=== PATIENT | male | born 1960 | race Caucasian/White ===

== ENCOUNTER → 2017-10-23 | Outpatient (REF) | payer OTHER ==
[2017-10-23 10:53] LABS: HEMATOCRIT 46.6 % (42.0-52.0)
[2017-10-23 11:19] LABS: CHOLESTEROL LEVEL 183 MG/DL (<200); CHOLESTEROL RISK RATIO 3.452 (<5); HDL CHOLESTEROL 53 MG/DL (>40); IRON (FE) 101 UG/DL (65-175); LDL CHOLESTEROL 105.2 MG/DL (<100); MAGNESIUM LEVEL 2.1 MG/DL (1.8-2.4); NON-HDL-C 130 MG/DL; PERCENT SATURATION 33.1 % (19.7-50.0); PHOSPHORUS LEVEL 2.7 MG/DL (2.5-4.9); TOTAL IRON BINDING CAPACITY 305 UG/DL (250-450); TRIGLYCERIDES LEVEL 124 MG/DL (<150)
[2017-10-23 16:38] LABS: TOTAL 25(OH) VITAMIN D 29.4 NG/ML (30.0-100.0); VITAMIN B12 LEVEL 491 PG/ML (247-911)
[2017-10-24 08:16] LABS: PRETREATED FOLATE FOR RBCFOL 15.2 NG/ML
== END ==
LOC: M LABDRAW1 10:15
DX: Z98.84 Bariatric surgery status (principal); R53.83 Other fatigue

== ENCOUNTER → 2018-06-26 | Outpatient (REF) | payer OTHER ==
[2018-06-26 12:11] LABS: BASO # 0.1 10^3/uL (0.0-0.2); BASO % 0.9 % (0.0-1.0); EOS # 0.3 10^3/uL (0.0-0.50); HEMATOCRIT 41.8 % (42.0-52.0); HEMOGLOBIN 13.5 g/dl (13.5-17.5); LYMPH # 2.6 10^3/uL (1.5-4.5); LYMPH % 45.8 % (24.0-44.0); MEAN CORPUSCULAR HEMOGLOBIN 29.3 pg (27.0-33.0); MEAN CORPUSCULAR HGB CONC 32.3 g/dl (32.0-36.5); MEAN CORPUSCULAR VOLUME 90.9 fl (80.0-96.0); MONO # 0.4 10^3/uL (0.0-0.8); MONO % 7.5 % (0.0-5.0); NEUTROPHILS # 2.3 10^3/uL (1.8-7.7); NEUTROPHILS % 40.4 % (36.0-66.0); PLATELET COUNT, AUTOMATED 327 10^3/uL (150-450); WHITE BLOOD COUNT 5.6 10^3/uL (4.0-10.0)
[2018-06-26 12:24] LABS: ALBUMIN 3.5 GM/DL (3.2-5.2); ALT/SGPT 17 U/L (12-78); BILIRUBIN,TOTAL 0.7 MG/DL (0.2-1.0); BLOOD UREA NITROGEN 17 MG/DL (7-18); CALCIUM LEVEL 8.9 MG/DL (8.8-10.2); CARBON DIOXIDE LEVEL 28 MEQ/L (21-32); CHLORIDE LEVEL 109 MEQ/L (98-107); CHOLESTEROL LEVEL 187 MG/DL (<200); CHOLESTEROL RISK RATIO 4.452 (<5); FERRITIN 27 NG/ML (26-388); GLOMERULAR FILTRATION RATE > 60.0 (>49); GLUCOSE, FASTING 97 MG/DL (70-100); HDL CHOLESTEROL 42 MG/DL (>40); IRON (FE) 80 UG/DL (65-175); LDL CHOLESTEROL 126 MG/DL (<100); NON-HDL-C 145 MG/DL; PERCENT SATURATION 28.2 % (19.7-50.0); SODIUM LEVEL 142 MEQ/L (136-145); TOTAL IRON BINDING CAPACITY 284 UG/DL (250-450); TOTAL PROTEIN 6.9 GM/DL (6.4-8.2); TRIGLYCERIDES LEVEL 97 MG/DL (<150)
[2018-06-26 12:29] LABS: VITAMIN B12 LEVEL 745 PG/ML (247-911)
== END ==
LOC: M LABDRAW1 08:49
PROVIDERS: ATTEND Physician Assistant
DX: I10 Essential (primary) hypertension (principal); Z98.84 Bariatric surgery status

== ENCOUNTER → 2018-10-21 | Outpatient (CLI) | payer BC, OTHER ==
[~2018-10-21] MED LIST: E-Z-GAS II EFFERVESCENT PACKET (SODIUM BICARB./CITRIC ACID/SIMETHICONE) As Ordered ONE; E-Z-HD 98% w/w 340GM SUSP BTL As Ordered ONE; E-Z-PAQUE 96% w/w SUSP 176GM BTL As Ordered ONE
--- NOTE | 2018-10-21 17:05 | REP ---
Examination Requested: Upper G.I. Series With KUB Reason For Exam: Dysphasia Upper GI Air Contrast The procedure was performed by DELMIS Khalil, under the direct supervision of Dr. Cheek. The images were reviewed with Dr. Cheek. The mileage clerk film shows no organomegaly or pathological masses. The intestinal gas pattern appears normal. There are surgical lamine in the right upper quadrant consistent with the patient's history of a cholecystectomy. There is surgical hardware in the right hip consistent with the patient's history of right hip replacement. Liquid barium was given in the erect position as well as liquid barium in the prone oblique position in order to perform a double contrast upper GI examination. The oral and pharyngeal stages of deglutition were unremarkable. Esophageal transport is efficient and there is no esophagitis, stricture, or mucosal ring noted. There is no] hiatal hernia. Gastroesophageal reflux was not observed throughout the course of the exam. The stomach demonstrates postsurgical changes consistent with the patient's history of gastric bypass. There is free flow of contrast through the anastomosis. There is no evidence of stricture or obstruction. There is no evidence of gastritis, neoplasm, or ulcer disease. The visualized portion of the proximal small bowel appears normal in course and caliber. Impression: 1. Unremarkable upper GI examination status post gastric bypass. 0.6 minutes of fluoroscopy time was utilized for this procedure. Some fluoroscopic images are performed with last image hold technology. These images require no additional radiation. Reviewed by DELMIS Dos Santos 10/21/2018 01:14 P Electronically Signed by Phu Cheek DO 10/21/2018 04:52 P
== END ==
LOC: M RAD 07:54
PROVIDERS: ATTEND Physician Assistant
DX: R13.19 Other dysphagia (principal)

== ENCOUNTER 2019-04-03 07:07 | Day surgery (SDC) | payer BC, OTHER ==
[~2019-04-03] VITALS: Ht 175.3 cm; Wt 99.8 kg
[~2019-04-03 07:07] MED LIST changes: +AMLO10TA5 PO; +BSS IRR 500ML/OMIDRIA 4ML IRR BAG (OR ONLY) (J1097 PER ML) As Ordered ONE; +CEFUROXIME 1MG/0.1ML INTRACAMERAL INJ As Ordered ONE; +CIAL5TAB PO; +DUOVISC (0.50ML VISCOAT/0.55ML PROVISC) OPHTH KIT As Ordered ONE; -E-Z-GAS II EFFERVESCENT PACKET (SODIUM BICARB./CITRIC ACID/SIMETHICONE) As Ordered ONE; -E-Z-HD 98% w/w 340GM SUSP BTL As Ordered ONE; -E-Z-PAQUE 96% w/w SUSP 176GM BTL As Ordered ONE; +ESCI10TA2 PO; +FISH1000 PO; +MULTCAP PO; +OFLOXACIN 0.3 % (OCUFLOX) OPTH SOL 5ML OS ONE; +PHENYLEPHRINE 2.5% OPHTH SOL 2ML OS ONE; +POVIDONE-IODINE 5% OPHTH PREP SOL 30ML As Ordered ONE; +PROPARACAINE 0.5% OPHTH SOL 15ML OS ONE; +TROPICAMIDE 1% OPHTH SOLN 2ML OS ONE
[2019-04-03] MEDS ORDERED: fentaNYL 100 MCG/2 ML INJECTION (J3010) As Ordered ONE (07:14)
[2019-04-03] MEDS ORDERED: MIDAZOLAM INJ 2 MG/2 ML VIAL (J2250) As Ordered ONE (07:14)
[2019-04-03] MEDS ORDERED: LISI-538 PO (08:24)
[2019-04-03] MEDS ORDERED: TADA5TAB PO (08:25)
[2019-04-03 10:32] VITALS: BP 149/86
--- NOTE | 2019-04-04 16:47 | RO ---
DATE OF PROCEDURE: 04/03/2019 PREOPERATIVE DIAGNOSIS: 1. Visually significant nuclear sclerotic cataract left eye. POSTOPERATIVE DIAGNOSIS: 1. Visually significant nuclear sclerotic cataract left eye. PROCEDURE: 1. Cataract extraction with use of phacoemulsification and placement of intraocular lens, AU00T0, 15.5 D, left eye. SURGEON: Cody Mcdonald DO ARTIFICIAL INSEMINATOR: None. ANESTHESIA: Local with monitored anesthesia care (MAC), with Omidria (4 mL/500 mL) mixed into irrigation solution. COMPLICATIONS: None. POSTOPERATIVE CONDITION: Stable. INDICATIONS FOR SURGERY: 1. Blurred vision affecting patients activities of daily living. DESCRIPTION OF PROCEDURE: The patient was seen in the preoperative area and properly identified. The correct operative eye was identified and marked. The patient received topical anesthetic, antibiotics, and topical dilating drops. The patient was then transferred to the operating room. The correct side was re-identified, and a time-out was performed. The eye was prepped and draped in a sterile fashion. The eyelids were isolated with Tegaderm tape, and the lids were held open with an adjustable speculum. A 1.0 mm paracentesis incision was made. Intraocular preservative-free Shugarcaine was then injected into the anterior chamber. Viscoelastic was then injected into the anterior chamber through the paracentesis. Using a 2.4 mm sharp-tipped keratome, the anterior chamber was entered via a temporal clear cornea incision. A continuous curvilinear capsulorrhexis was created with Utrata forceps. Hydrodissection was performed with balanced salt solution (BSS) on a blunt cannula until the nucleus was able to rotate freely. The crystalline lens was phacoemulsified and aspirated. Irrigation/aspiration was used to remove the cortical material. Cohesive viscoelastic was placed into the capsular bag to deepen it. The implant was placed into the capsular bag and allowed to unfold. Placement was confirmed by visualizing the anterior capsulorrhexis. Irrigation/aspiration was used to remove the viscoelastic. The clear corneal incision was hydrated with BSS on a blunt cannula. The lens was well positioned. The incisions were then tested for leaks and found to be negative. Cefuroxime was injected into the anterior chamber. The eye was then palpated for appropriate pressure and adjusted accordingly with BSS. The eyelid speculum was then carefully removed. A shield was placed over the eye. The patient tolerated the procedure well and was discharged to the recovery unit in a stable condition.
== END 2019-04-03 10:36 | disposition home or self-care (01) ==
LOC: M SDC 07:07
PROVIDERS: ATTEND Ophthalmology
DX: H25.12 Age-related nuclear cataract, left eye (principal); I10 Essential (primary) hypertension; R21 Rash and other nonspecific skin eruption; M54.9 Dorsalgia, unspecified; F32.9 Major depressive disorder, single episode, unspecified; G47.30 Sleep apnea, unspecified; N40.0 Benign prostatic hyperplasia without lower urinary tract symptoms; N39.9 Disorder of urinary system, unspecified; Z96.641 Presence of right artificial hip joint; Z79.899 Other long term (current) drug therapy
CPT/HCPCS: 66984; J1097; J2250; J3010

== ENCOUNTER → 2019-08-04 | Outpatient (CLI) | payer BC, OTHER ==
[~2019-08-04] MED LIST changes: -BSS IRR 500ML/OMIDRIA 4ML IRR BAG (OR ONLY) (J1097 PER ML) As Ordered ONE; -CEFUROXIME 1MG/0.1ML INTRACAMERAL INJ As Ordered ONE; +CELE1CAP7 PO; -DUOVISC (0.50ML VISCOAT/0.55ML PROVISC) OPHTH KIT As Ordered ONE; +LISI-538 PO; +NIZO2SHA EXT; -OFLOXACIN 0.3 % (OCUFLOX) OPTH SOL 5ML OS ONE; -PHENYLEPHRINE 2.5% OPHTH SOL 2ML OS ONE; -POVIDONE-IODINE 5% OPHTH PREP SOL 30ML As Ordered ONE; -PROPARACAINE 0.5% OPHTH SOL 15ML OS ONE; +TADA5TAB PO; -TROPICAMIDE 1% OPHTH SOLN 2ML OS ONE
== END ==
LOC: M LABSMTC 11:41
PROVIDERS: ATTEND Anesthesiology
DX: Z01.818 Encounter for other preprocedural examination (principal); Z11.59 Encounter for screening for other viral diseases

== ENCOUNTER → 2019-08-05 | Outpatient (CLI) | payer BC, OTHER ==
[2019-08-05 12:01] LABS: BASO # 0.1 10^3/uL (0.0-0.2); BASO % 0.9 % (0.0-1.0); EOS # 0.3 10^3/uL (0.0-0.5); EOS % 4.8 % (0.0-3.0); HEMATOCRIT 42.7 % (42.0-52.0); HEMOGLOBIN 13.5 g/dl (13.5-17.5); LYMPH # 1.9 10^3/uL (1.5-5.0); LYMPH % 34.4 % (24.0-44.0); MEAN CORPUSCULAR HEMOGLOBIN 28.1 pg (27.0-33.0); MEAN CORPUSCULAR HGB CONC 31.6 g/dl (32.0-36.5); MEAN CORPUSCULAR VOLUME 88.8 fl (80.0-96.0); MONO # 0.5 10^3/uL (0.0-0.8); NEUTROPHILS # 2.7 10^3/uL (1.5-8.5); NEUTROPHILS % 49.5 % (36.0-66.0); PLATELET COUNT, AUTOMATED 311 10^3/uL (150-450); RED BLOOD COUNT 4.81 10^6/uL (4.30-6.10); WHITE BLOOD COUNT 5.4 10^3/uL (4.0-10.0)
[2019-08-05 12:14] LABS: ALBUMIN 3.4 GM/DL (3.2-5.2); ALT/SGPT 20 U/L (12-78); BLOOD UREA NITROGEN 13 MG/DL (7-18); CALCIUM LEVEL 8.9 MG/DL (8.8-10.2); CARBON DIOXIDE LEVEL 28 MEQ/L (21-32); CHLORIDE LEVEL 108 MEQ/L (98-107); CHOLESTEROL LEVEL 191 MG/DL (<200); CHOLESTEROL RISK RATIO 4.063 (<5); CREATININE FOR GFR 0.78 MG/DL (0.70-1.30); GLOMERULAR FILTRATION RATE > 60.0 (>49); GLUCOSE, FASTING 93 MG/DL (70-100); HDL CHOLESTEROL 47 MG/DL (>40); LDL CHOLESTEROL 125 MG/DL (<100); NON-HDL-C 144 MG/DL; POTASSIUM SERUM 3.8 MEQ/L (3.5-5.1); SODIUM LEVEL 141 MEQ/L (136-145); TOTAL PROTEIN 7.5 GM/DL (6.4-8.2); TRIGLYCERIDES LEVEL 96 MG/DL (<150)
== END ==
LOC: M PLALAB 08:59
PROVIDERS: ATTEND Family Medicine
DX: Z00.00 Encounter for general adult medical examination without abnormal findings (principal)

== ENCOUNTER 2019-08-07 09:58 | Day surgery (SDC) | payer BC, OTHER ==
[~2019-08-07] VITALS: Ht 175.3 cm; Wt 101.7 kg
[~2019-08-07 09:58] MED LIST changes: -NIZO2SHA EXT
[2019-08-07] MEDS: NS 1,000 ML IV SCH (10:25)
[2019-08-07] MEDS ORDERED: NIZO2SHA EXT (10:37)
[2019-08-07] MEDS ORDERED: LIDOCAINE 2% 100MG/5ML SDV (FOR ANES.) As Ordered ONE (10:50)
[2019-08-07] MEDS ORDERED: propofoL 500 MG/50 ML VIAL As Ordered ONE (10:50)
--- NOTE | 2019-08-07 11:02 | ROOR ---
Patient Name: Kang Ayers Procedure Date: 08/07/2019 10:47 AM Date of : 1960 Age: 59 Room: [facility] Gender: Male Note Status: Finalized Procedure: Colonoscopy Indications: Screening for colorectal malignant neoplasm Providers: Rd Atkins Jr, MD Referring MD: Itzel Srivastava MD Requesting Provider: Medicines: Propofol per Anesthesia Complications: No immediate complications. Procedure: Pre-Anesthesia Assessment: - Prior to the procedure, a History and Physical was performed, and patient medications and allergies were reviewed. The patient is competent. The risks and benefits of the procedure and the sedation options and risks were discussed with the patient. All questions were answered and informed consent was obtained. Patient identification and proposed procedure were verified by the physician and the nurse in the pre-procedure area and in the procedure room. Mental Status Examination: alert and oriented. Airway Examination: normal oropharyngeal airway and neck mobility. Respiratory Examination: clear to auscultation. CV Examination: normal. ASA Grade Assessment: II - A patient with mild systemic disease. After reviewing the risks and benefits, the patient was deemed in satisfactory condition to undergo the procedure. The anesthesia plan was to use moderate sedation / analgesia (conscious sedation). Immediately prior to administration of medications, the patient was re-assessed for adequacy to receive sedatives. The heart rate, respiratory rate, oxygen saturations, blood pressure, adequacy of pulmonary ventilation, and response to care were monitored throughout the procedure. The physical status of the patient was re-assessed after the procedure. The Colonoscope was introduced through the anus and advanced to the cecum, identified by appendiceal orifice and ileocecal valve. The colonoscopy was performed without difficulty. The patient tolerated the procedure well. The quality of the bowel preparation was adequate. Findings: The rectum, recto-sigmoid colon, sigmoid colon, descending colon, transverse colon, ascending colon, cecum and ileocecal valve appeared normal. Non-bleeding internal hemorrhoids were found during endoscopy. The hemorrhoids were Grade II (internal hemorrhoids that prolapse but reduce spontaneously) and Grade III (internal hemorrhoids that prolapse but require manual reduction). Impression: - The rectum, recto-sigmoid colon, sigmoid colon, descending colon, transverse colon, ascending colon, cecum and ileocecal valve are normal. - Non-bleeding internal hemorrhoids. - No specimens collected. Recommendation: - Repeat colonoscopy in 10 years for screening purposes. Rd Atkins MD Rd Atkins Jr, MD 08/07/2019 11:02:17 AM Electronically signed by Rd Atkins Jr, MD Number of Addenda: 0 Note Initiated On: 08/07/2019 10:47 AM Estimated Blood Loss: Estimated blood loss: none.
[2019-08-07 11:25] VITALS: BP 114/62
== END 2019-08-07 11:54 | disposition home or self-care (01) ==
LOC: M OPP 09:58
PROVIDERS: ATTEND Surgery
DX: Z12.11 Encounter for screening for malignant neoplasm of colon (principal); K64.2 Third degree hemorrhoids; I10 Essential (primary) hypertension; Z79.899 Other long term (current) drug therapy; Z98.84 Bariatric surgery status

== ENCOUNTER 2019-08-24 11:44 | Emergency (ER) | payer BC, OTHER ==
[~2019-08-24] VITALS: Ht 175.3 cm; Wt 104.8 kg
[~2019-08-24 11:44] MED LIST changes: -AMLO10TA5 PO; +AMLO1TAB25 PO; +NIZO2SHA EXT
[2019-08-24 12:32] LABS: BASO # 0.1 10^3/uL (0.0-0.2); BASO % 0.9 % (0.0-1.0); EOS # 0.3 10^3/uL (0.0-0.5); EOS % 4.7 % (0.0-3.0); HEMATOCRIT 43.1 % (42.0-52.0); HEMOGLOBIN 13.7 g/dl (13.5-17.5); LYMPH # 2.1 10^3/uL (1.5-5.0); LYMPH % 38.4 % (24.0-44.0); MEAN CORPUSCULAR HGB CONC 31.8 g/dl (32.0-36.5); MEAN CORPUSCULAR VOLUME 88.1 fl (80.0-96.0); MONO # 0.6 10^3/uL (0.0-0.8); MONO % 10.1 % (0.0-5.0); NEUTROPHILS # 2.5 10^3/uL (1.5-8.5); NEUTROPHILS % 45.7 % (36.0-66.0); PLATELET COUNT, AUTOMATED 281 10^3/uL (150-450); RED BLOOD COUNT 4.89 10^6/uL (4.30-6.10); WHITE BLOOD COUNT 5.5 10^3/uL (4.0-10.0)
[2019-08-24 12:43] LABS: INR 1.07; PROTHROMBIN TIME 13.6 SECONDS (11.8-14.0)
[2019-08-24 12:44] LABS: PARTIAL THROMBOPLASTIN TIME 30.1 SECONDS (25.0-38.4)
[2019-08-24 13:00] LABS: CK-MB VALUE MASS 1.1 NG/ML (<3.6); CPK CREATINE PHOSPHOKINASE 57 U/L (39-308); MB/CK RELATIVE INDEX 1.93 (< OR =4); TROPONIN I < 0.02 NG/ML (< 0.10)
--- NOTE | 2019-08-24 13:15 | REP ---
CT brain: 08/24/2019. Indication: Stroke. Technique: Unenhanced axial CT images of the brain were obtained with coronal reconstructions provided. Comparison: None. Findings: There is no acute intracranial hemorrhage, acute cortical infarction, mass effect or hydrocephalous. There is no significant fluid within the visualized paranasal sinuses/mastoid air cells. Impression: No acute intracranial process. Electronically Signed by Rogers Burns DO 08/24/2019 01:06 P
--- NOTE | 2019-08-24 13:27 | REP ---
Single view chest: 08/24/2019. Indication: Stroke. Comparison: 11/24/2011. Findings: The lungs are clear. There is no pleural effusion or pneumothorax. Minimal discoid atelectasis is noted within the lung bases. The cardiac silhouette is not enlarged. Impression: Clear lungs. Electronically Signed by Rogers Burns DO 08/24/2019 01:17 P
[2019-08-24] MEDS ORDERED: LORazepam 2 MG/ML VIAL IV STA (15:26)
--- NOTE | 2019-08-24 16:12 | ECGEPIP ---
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
[2019-08-24 17:00] VITALS: BP 155/77
--- NOTE | 2019-08-24 17:02 | REP ---
MRI brain and intracranial MRA: 08/24/2019. Indication: Diplopia. Headache. Technique: Multiplanar short and long TR sequences of the brain were performed without IV Gadolinium. 3-D [id number] imaging of the intracranial circulation was performed. Comparison: No previous MRI studies are available for direct comparison. Findings: There are no areas of restricted diffusion. There is no intracranial mass effect, hydrocephalus or significant hemorrhage. There are a few small foci of elevated T2 signal within the cerebral hemisphere white matter bilaterally. Bilateral ocular lens replacements are noted. There are no acute abnormalities of the ocular or intraorbital anatomy. There is no intracranial aneurysm, AVM, significant stenosis or vessel occlusion. Impression: No acute intracranial process. 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 Unremarkable intracranial vessels. No aneurysm. Electronically Signed by Rogers Burns DO 08/24/2019 04:54 P
--- NOTE | 2019-08-24 17:03 | REP ---
MRI brain and intracranial MRA: 08/24/2019. Indication: Diplopia. Headache. Technique: Multiplanar short and long TR sequences of the brain were performed without IV Gadolinium. 3-D [id number] imaging of the intracranial circulation was performed. Comparison: No previous MRI studies are available for direct comparison. Findings: There are no areas of restricted diffusion. There is no intracranial mass effect, hydrocephalus or significant hemorrhage. There are a few small foci of elevated T2 signal within the cerebral hemisphere white matter bilaterally. Bilateral ocular lens replacements are noted. There are no acute abnormalities of the ocular or intraorbital anatomy. There is no intracranial aneurysm, AVM, significant stenosis or vessel occlusion. Impression: No acute intracranial process. Electronically Signed by Rogers Burns DO 08/24/2019 04:54 P
== END 2019-08-24 17:24 | disposition home or self-care (01) ==
LOC: M ED 11:44
DX: H53.2 Diplopia (principal); I10 Essential (primary) hypertension; F33.9 Major depressive disorder, recurrent, unspecified; F41.9 Anxiety disorder, unspecified; G47.30 Sleep apnea, unspecified; Z79.899 Other long term (current) drug therapy
CPT/HCPCS: 70450; 70544; 70551; 71045; 80047; 82550; 82553; 84484; 85025; 85610; 85730; 86850; 86900; 86901; 93005; 93041; 94760; 96374; 99284; J2060

== ENCOUNTER → 2019-09-08 | Outpatient (CLI) | payer BC, OTHER ==
[~2019-09-08] MED LIST changes: +AMLO10TA5 PO; -AMLO1TAB25 PO
== END ==
LOC: M PLALAB 12:20
PROVIDERS: ATTEND Physician Assistant
DX: N40.1 Benign prostatic hyperplasia with lower urinary tract symptoms (principal)

== ENCOUNTER → 2019-10-30 | Outpatient (CLI) | payer BC, OTHER ==
[~2019-10-30] MED LIST changes: -AMLO10TA5 PO; +AMLO1TAB25 PO
[2019-10-30 19:39] LABS: ALBUMIN 3.8 GM/DL (3.2-5.2); ALT/SGPT 23 U/L (12-78); BILIRUBIN,TOTAL 0.7 MG/DL (0.2-1.0); BLOOD UREA NITROGEN 10 MG/DL (7-18); CALCIUM LEVEL 8.8 MG/DL (8.8-10.2); CARBON DIOXIDE LEVEL 31 MEQ/L (21-32); CHLORIDE LEVEL 108 MEQ/L (98-107); GLOMERULAR FILTRATION RATE > 60.0 (>49); GLUCOSE, FASTING 67 MG/DL (70-100); POTASSIUM SERUM 4.4 MEQ/L (3.5-5.1); SODIUM LEVEL 141 MEQ/L (136-145); TOTAL PROTEIN 7.6 GM/DL (6.4-8.2)
== END ==
LOC: M PLALAB 15:21
PROVIDERS: ATTEND Nurse Practitioner Family
DX: I10 Essential (primary) hypertension (principal)

== ENCOUNTER → 2019-11-12 | Outpatient (CLI) | payer BC, OTHER ==
--- NOTE | 2019-11-15 08:51 | SLEEPCENT ---
DATE: 11/12/2019 ORDERED BY: Dr. Leonora Gregorio Nocturnal polysomnography was performed for the titration of pressure therapy in this patient with obstructive sleep apnea syndrome. For testing, a [facility] [employer] Mirage full-face mask of medium size was used. There was 4 cm of water pressure applied to the circuit, and the lights were extinguished. There was 7 hours and 30 minutes of data reviewed. There was 250.5 minutes of sleep identified. Sleep latency was prolonged at 142 minutes. REM latency was normal at 61 minutes. Sleep architecture once established improved over the course of the study with optimal pressure therapy. There were three REM cycles noted. Overall sleep efficiency was 56.2%. The electrocardiogram showed a sinus rhythm with a average heart rate of 58 beats per minute. EEG showed normal waveforms for wake and sleep. Respiratory events were fully palliated with CPAP at a pressure of +8. Some limb activity was noted, but limb movement arousal index was 3.4. IMPRESSION: Obstructive sleep apnea syndrome (G47.33). RECOMMENDATION: Nightly use of pressure therapy, 8 cm of water. MTDD
== END ==
LOC: M SLEEP 20:00
PROVIDERS: ATTEND Nurse Practitioner Family
DX: G47.33 Obstructive sleep apnea (adult) (pediatric) (principal)

== ENCOUNTER → 2020-01-02 | Outpatient (CLI) | payer SELFPAY | LOC: M LABSMTC 12:57 | PROVIDERS: ATTEND Pediatrics | DX: Z20.828 Contact with and (suspected) exposure to other viral communicable diseases (principal) ==

== ENCOUNTER → 2020-04-09 | Outpatient (CLI) | payer OTHER ==
[~2020-04-09] MED LIST changes: +ESCI10TA16 PO; -ESCI10TA2 PO; -LISI-538 PO; +LISI20TA33 PO
[2020-04-11 06:39] LABS: PSA TOTAL 3.3 ng/mL (0.0-4.0)
== END ==
LOC: M PLALAB 11:23
PROVIDERS: ATTEND Urology
DX: R97.20 Elevated prostate specific antigen [PSA] (principal); C61 Malignant neoplasm of prostate

== ENCOUNTER → 2020-04-27 | Outpatient (CLI) | payer OTHER ==
[2020-04-27 18:12] LABS: BLOOD UREA NITROGEN 11 MG/DL (7-18); CALCIUM LEVEL 9.3 MG/DL (8.8-10.2); CARBON DIOXIDE LEVEL 30 MEQ/L (21-32); CHLORIDE LEVEL 106 MEQ/L (98-107); CREATININE FOR GFR 0.88 MG/DL (0.70-1.30); GLOMERULAR FILTRATION RATE > 60.0 (>49); GLUCOSE, FASTING 88 MG/DL (70-100); POTASSIUM SERUM 3.8 MEQ/L (3.5-5.1); SODIUM LEVEL 143 MEQ/L (136-145)
== END ==
LOC: M PLALAB 14:52
PROVIDERS: ATTEND Family Medicine
DX: I10 Essential (primary) hypertension (principal)

== ENCOUNTER → 2020-06-11 | Outpatient (CLI) | payer SELFPAY | LOC: M LABSMTC 10:24 | PROVIDERS: ATTEND Pediatrics | DX: Z11.52 Encounter for screening for COVID-19 (principal) ==

== ENCOUNTER → 2020-06-11 | Outpatient (CLI) | payer BC, OTHER ==
--- NOTE | 2020-06-11 17:19 | ECGEPIP ---
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
== END ==
LOC: M EKG 09:40
PROVIDERS: ATTEND Family Medicine
DX: Z01.818 Encounter for other preprocedural examination (principal); R00.1 Bradycardia, unspecified

== ENCOUNTER → 2020-06-18 | Outpatient (CLI) | payer BC, OTHER ==
[2020-06-18 16:53] LABS: BASO % 0.6 % (0.0-1.0); EOS # 0.2 10^3/uL (0.0-0.5); EOS % 3.9 % (0.0-3.0); LYMPH # 1.4 10^3/uL (1.5-5.0); LYMPH % 26.6 % (24.0-44.0); MEAN CORPUSCULAR HEMOGLOBIN 28.1 pg (27.0-33.0); MEAN CORPUSCULAR HGB CONC 31.1 g/dl (32.0-36.5); MEAN CORPUSCULAR VOLUME 90.4 fl (80.0-96.0); MONO # 0.5 10^3/uL (0.0-0.8); MONO % 9.8 % (2.0-8.0); NEUTROPHILS % 58.9 % (36.0-66.0); PLATELET COUNT, AUTOMATED 288 10^3/uL (150-450); RED BLOOD COUNT 4.98 10^6/uL (4.30-6.10); WHITE BLOOD COUNT 5.1 10^3/uL (4.0-10.0)
[2020-06-18 17:07] LABS: ALBUMIN 3.7 GM/DL (3.2-5.2); ALT/SGPT 18 U/L (12-78); BILIRUBIN,TOTAL 0.7 MG/DL (0.2-1.0); BLOOD UREA NITROGEN 12 MG/DL (7-18); CARBON DIOXIDE LEVEL 29 MEQ/L (21-32); CHLORIDE LEVEL 111 MEQ/L (98-107); CREATININE FOR GFR 1.03 MG/DL (0.70-1.30); GLOMERULAR FILTRATION RATE > 60.0 (>49); GLUCOSE, FASTING 162 MG/DL (70-100); POTASSIUM SERUM 3.8 MEQ/L (3.5-5.1); SODIUM LEVEL 144 MEQ/L (136-145); TOTAL PROTEIN 7.4 GM/DL (6.4-8.2)
[2020-06-18 17:11] LABS: INR 0.98; PROTHROMBIN TIME 13.2 SECONDS (12.5-14.3)
[2020-06-18 17:12] LABS: PARTIAL THROMBOPLASTIN TIME 31.9 SECONDS (24.2-38.5)
== END ==
LOC: M PLALAB 14:35
PROVIDERS: ATTEND Radiology Therapeutic Radiology
DX: C61 Malignant neoplasm of prostate (principal)

== ENCOUNTER → 2020-07-22 | Outpatient (CLI) | payer BC, OTHER ==
[2020-07-22 11:53] LABS: HEMATOCRIT 43.9 % (42.0-52.0); HEMOGLOBIN 13.6 g/dl (13.5-17.5); MEAN CORPUSCULAR HEMOGLOBIN 27.9 pg (27.0-33.0); PLATELET COUNT, AUTOMATED 322 10^3/uL (150-450); RED BLOOD COUNT 4.88 10^6/uL (4.30-6.10); WHITE BLOOD COUNT 5.1 10^3/uL (4.0-10.0)
[2020-07-22 12:35] LABS: ALBUMIN 3.5 GM/DL (3.2-5.2); BILIRUBIN,DIRECT 0.2 MG/DL (0.0-0.2); BILIRUBIN,TOTAL 0.8 MG/DL (0.2-1.0); CHOLESTEROL RISK RATIO 4.68 (<5); MAGNESIUM LEVEL 2.5 MG/DL (1.8-2.4); THYROID STIMULATING HORMONE 2.92 uIU/ML (0.358-3.740); TOTAL 25(OH) VITAMIN D 23.2 NG/ML (30.0-100.0); TOTAL PROTEIN 7.3 GM/DL (6.4-8.2)
== END ==
LOC: M PLALAB 08:16
DX: Z98.84 Bariatric surgery status (principal); R63.5 Abnormal weight gain; K91.1 Postgastric surgery syndromes

== ENCOUNTER → 2020-08-16 | Outpatient (REF) | payer BC, OTHER ==
[2020-08-16 19:50] LABS: BLOOD UREA NITROGEN 9 MG/DL (7-18); CALCIUM LEVEL 9.5 MG/DL (8.8-10.2); CARBON DIOXIDE LEVEL 28 MEQ/L (21-32); CHLORIDE LEVEL 107 MEQ/L (98-107); CREATININE FOR GFR 0.84 MG/DL (0.70-1.30); GLOMERULAR FILTRATION RATE > 60.0 (>49); GLUCOSE, FASTING 79 MG/DL (70-100); POTASSIUM SERUM 3.9 MEQ/L (3.5-5.1); SODIUM LEVEL 142 MEQ/L (136-145)
== END ==
LOC: M LAB REF 18:01 → M PLALAB 18:01
PROVIDERS: ATTEND Family Medicine
DX: Z01.818 Encounter for other preprocedural examination (principal); I10 Essential (primary) hypertension; H43.392 Other vitreous opacities, left eye

== ENCOUNTER → 2020-10-07 | Outpatient (CLI) | payer BC, OTHER ==
[2020-10-07 17:59] LABS: BLOOD UREA NITROGEN 14 MG/DL (7-18); CALCIUM LEVEL 8.5 MG/DL (8.8-10.2); CARBON DIOXIDE LEVEL 31 MEQ/L (21-32); CHLORIDE LEVEL 107 MEQ/L (98-107); CREATININE FOR GFR 0.84 MG/DL (0.70-1.30); GLOMERULAR FILTRATION RATE > 60.0 (>49); GLUCOSE, FASTING 130 MG/DL (70-100); POTASSIUM SERUM 3.9 MEQ/L (3.5-5.1); SODIUM LEVEL 140 MEQ/L (136-145)
== END ==
LOC: M PLALAB 15:22
PROVIDERS: ATTEND Family Medicine
DX: Z01.818 Encounter for other preprocedural examination (principal); I10 Essential (primary) hypertension

== ENCOUNTER → 2020-10-21 | Outpatient (CLI) | payer BC, OTHER | LOC: M LABSMTC 09:51 | PROVIDERS: ATTEND Ophthalmology Retina Specialist | DX: Z01.818 Encounter for other preprocedural examination (principal) ==

== ENCOUNTER → 2021-07-07 | Outpatient (CLI) | payer BC, OTHER, MEDICARE | LOC: M LABSMTC 10:25 | PROVIDERS: ATTEND Pediatrics | DX: Z20.822 Contact with and (suspected) exposure to COVID-19 (principal) | CPT/HCPCS: 87426; C9803 ==

== ENCOUNTER → 2021-12-13 | Outpatient (REF) | payer MEDICARE, BC, OTHER | LOC: M LAB REF 17:26 | PROVIDERS: ATTEND Nurse Practitioner Family | DX: J02.9 Acute pharyngitis, unspecified (principal) ==

== ENCOUNTER → 2022-01-16 | Outpatient (CLI) | payer MEDICARE, BC, OTHER ==
[2022-01-16 12:20] LABS: INR 0.9; PROTHROMBIN TIME 12.3 SECONDS (12.5-14.5)
[2022-01-16 12:35] LABS: ALBUMIN 3.4 GM/DL (3.2-5.2); ALT/SGPT 18 U/L (12-78); BILIRUBIN,DIRECT 0.2 MG/DL (0.0-0.2); BILIRUBIN,TOTAL 0.6 MG/DL (0.2-1.0); IRON (FE) 53 UG/DL (65-175); PERCENT SATURATION 16.6 % (19.7-50.0); TOTAL IRON BINDING CAPACITY 320 UG/DL (250-450)
[2022-01-16 13:30] LABS: HEPATITIS B SURFACE ANTIGEN NEGATIVE (NEGATIVE)
[2022-01-16 13:52] LABS: HEPATITIS B CORE ANTIBODY IGM NEGATIVE (NEGATIVE)
[2022-01-18 16:09] LABS: ANCA-ATYPICAL <1:20 titer (Neg:<1:20); ANTI-MITOCHONDRIAL ANTIBODY <20.0 Units (0.0-20.0); ANTINUCLEAR ANTIBODIES DIRECT Negative (Negative); CYTOPLASMIC NEUTROP AB ANCA-C <1:20 titer (Neg:<1:20); LIVER-KIDNEY MICROSOMAL ABY <20.1 Units (0.0-20.0); PERINUCLEAR AB ANCA-P <1:20 titer (Neg:<1:20)
== END ==
LOC: M WUC 08:32
PROVIDERS: ATTEND Internal Medicine Gastroenterology
DX: R74.8 Abnormal levels of other serum enzymes (principal); R93.2 Abnormal findings on diagnostic imaging of liver and biliary tract

== ENCOUNTER → 2022-06-26 | Outpatient (REF) | payer MEDICARE, OTHER ==
[2022-06-26 12:58] LABS: BASO # 0.1 10^3/uL (0.0-0.2); BASO % 1.1 % (0.0-1.0); EOS # 0.2 10^3/uL (0.0-0.5); EOS % 3.3 % (0.0-3.0); HEMATOCRIT 45.1 % (42.0-52.0); HEMOGLOBIN 14.4 g/dl (13.5-17.5); LYMPH # 0.9 10^3/uL (1.5-5.0); LYMPH % 20.1 % (24.0-44.0); MEAN CORPUSCULAR HEMOGLOBIN 29.1 pg (27.0-33.0); MEAN CORPUSCULAR HGB CONC 31.9 g/dl (32.0-36.5); MEAN CORPUSCULAR VOLUME 91.1 fl (80.0-96.0); MONO # 0.4 10^3/uL (0.0-0.8); MONO % 9.2 % (2.0-8.0); NEUTROPHILS % 65.6 % (36.0-66.0); PLATELET COUNT, AUTOMATED 261 10^3/uL (150-450); RED BLOOD COUNT 4.95 10^6/uL (4.30-6.10); WHITE BLOOD COUNT 4.6 10^3/uL (4.0-10.0)
[2022-06-26 13:25] LABS: ALBUMIN 3.6 G/DL (3.2-5.2); ALKALINE PHOSPHATASE 108 U/L (46-116); ALT/SGPT 16 U/L (7.0-40); AST/SGOT 21 U/L (<34); BILIRUBIN,TOTAL 0.7 MG/DL (0.3-1.2); BLOOD UREA NITROGEN 13 MG/DL (9-23); CALCIUM LEVEL 8.5 MG/DL (8.3-10.6); CARBON DIOXIDE LEVEL 27 MMOL/L (20-31); CHLORIDE LEVEL 108 MMOL/L (98-107); CREATININE FOR GFR 0.72 MG/DL (0.70-1.30); GLOMERULAR FILTRATION RATE > 60.0 (>49); GLUCOSE, FASTING 94 MG/DL (74-106); POTASSIUM SERUM 4.2 MMOL/L (3.5-5.1); SODIUM LEVEL 141 MMOL/L (136-145); TOTAL PROTEIN 6.8 G/DL (5.7-8.2)
[2022-06-26 13:59] LABS: ERYTHROCYTE SEDIMENTATION RATE 42 mm/hr (0-20)
== END ==
LOC: M SFHCRHEU 08:53
PROVIDERS: ATTEND Internal Medicine Rheumatology
DX: M35.3 Polymyalgia rheumatica (principal); H04.123 Dry eye syndrome of bilateral lacrimal glands

== ENCOUNTER → 2022-06-28 | Outpatient (CLI) | payer MEDICARE, OTHER | LOC: M PLAIMG 10:41 | PROVIDERS: ATTEND Internal Medicine Rheumatology | DX: M35.3 Polymyalgia rheumatica (principal); H04.123 Dry eye syndrome of bilateral lacrimal glands; M47.812 Spondylosis without myelopathy or radiculopathy, cervical region; M19.071 Primary osteoarthritis, right ankle and foot; M19.072 Primary osteoarthritis, left ankle and foot; M19.041 Primary osteoarthritis, right hand; M19.042 Primary osteoarthritis, left hand; M47.817 Spondylosis without myelopathy or radiculopathy, lumbosacral region; M51.34 Other intervertebral disc degeneration, thoracic region ==

== ENCOUNTER → 2022-09-05 | Outpatient (REF) | payer MEDICARE, OTHER ==
[2022-09-05 13:46] LABS: BASO # 0.1 10^3/uL (0.0-0.2); EOS # 0.2 10^3/uL (0.0-0.5); HEMATOCRIT 47.3 % (42.0-52.0); HEMOGLOBIN 15.3 g/dl (13.5-17.5); LYMPH # 1.4 10^3/uL (1.5-5.0); LYMPH % 27.2 % (24.0-44.0); MEAN CORPUSCULAR HEMOGLOBIN 29.1 pg (27.0-33.0); MEAN CORPUSCULAR HGB CONC 32.3 g/dl (32.0-36.5); MEAN CORPUSCULAR VOLUME 89.9 fl (80.0-96.0); MONO # 0.6 10^3/uL (0.0-0.8); MONO % 10.7 % (2.0-8.0); NEUTROPHILS % 56.7 % (36.0-66.0); PLATELET COUNT, AUTOMATED 267 10^3/uL (150-450); RED BLOOD COUNT 5.26 10^6/uL (4.30-6.10); WHITE BLOOD COUNT 5.2 10^3/uL (4.0-10.0)
[2022-09-05 14:16] LABS: ALKALINE PHOSPHATASE 115 U/L (46-116); ALT/SGPT 16 U/L (7.0-40); AST/SGOT 13 U/L (<34); BILIRUBIN,TOTAL 1.2 MG/DL (0.3-1.2); BLOOD UREA NITROGEN 15 MG/DL (9-23); CALCIUM LEVEL 9.6 MG/DL (8.3-10.6); CARBON DIOXIDE LEVEL 27 MMOL/L (20-31); CHLORIDE LEVEL 104 MMOL/L (98-107); CREATININE FOR GFR 0.87 MG/DL (0.70-1.30); GLOMERULAR FILTRATION RATE > 60.0 (>49); GLUCOSE, FASTING 77 MG/DL (74-106); POTASSIUM SERUM 3.9 MMOL/L (3.5-5.1); SODIUM LEVEL 139 MMOL/L (136-145); TOTAL PROTEIN 7.3 G/DL (5.7-8.2)
[2022-09-05 15:01] LABS: ERYTHROCYTE SEDIMENTATION RATE 32 mm/hr (0-20)
== END ==
LOC: M SFHCRHEU 10:45
PROVIDERS: ATTEND Internal Medicine Rheumatology
DX: M35.3 Polymyalgia rheumatica (principal); H04.123 Dry eye syndrome of bilateral lacrimal glands; R79.82 Elevated C-reactive protein (CRP)

== ENCOUNTER → 2022-09-25 | Outpatient (CLI) | payer MEDICARE, BC, OTHER ==
[2022-09-25 15:50] LABS: BASO # 0.1 10^3/uL (0.0-0.2); BASO % 0.9 % (0.0-1.0); EOS # 0.2 10^3/uL (0.0-0.5); EOS % 2.6 % (0.0-3.0); HEMATOCRIT 43.6 % (42.0-52.0); HEMOGLOBIN 14.2 g/dl (13.5-17.5); LYMPH # 1.4 10^3/uL (1.5-5.0); LYMPH % 19.9 % (24.0-44.0); MEAN CORPUSCULAR HEMOGLOBIN 29.6 pg (27.0-33.0); MEAN CORPUSCULAR HGB CONC 32.6 g/dl (32.0-36.5); MONO # 0.6 10^3/uL (0.0-0.8); MONO % 8.9 % (2.0-8.0); NEUTROPHILS # 4.7 10^3/uL (1.5-8.5); NEUTROPHILS % 67.3 % (36.0-66.0); PLATELET COUNT, AUTOMATED 273 10^3/uL (150-450); RED BLOOD COUNT 4.79 10^6/uL (4.30-6.10)
[2022-09-25 16:09] LABS: ALBUMIN 3.5 G/DL (3.2-5.2); ALKALINE PHOSPHATASE 116 U/L (46-116); ALT/SGPT 17 U/L (7.0-40); AST/SGOT 14 U/L (<34); BILIRUBIN,TOTAL 0.8 MG/DL (0.3-1.2); BLOOD UREA NITROGEN 13 MG/DL (9-23); CALCIUM LEVEL 9.6 MG/DL (8.3-10.6); CARBON DIOXIDE LEVEL 28 MMOL/L (20-31); CHLORIDE LEVEL 106 MMOL/L (98-107); CREATININE FOR GFR 0.81 MG/DL (0.70-1.30); GLOMERULAR FILTRATION RATE > 60.0 (>49); GLUCOSE, FASTING 94 MG/DL (74-106); POTASSIUM SERUM 3.9 MMOL/L (3.5-5.1); SODIUM LEVEL 141 MMOL/L (136-145)
== END ==
LOC: M PLALAB 12:39
PROVIDERS: ATTEND Nurse Practitioner Family
DX: M79.661 Pain in right lower leg (principal)

== ENCOUNTER → 2022-09-25 | Outpatient (CLI) | payer MEDICARE, OTHER | LOC: M RAD 11:27 | PROVIDERS: ATTEND Nurse Practitioner Family | DX: M79.661 Pain in right lower leg (principal) ==

== ENCOUNTER → 2022-11-17 | Outpatient (CLI) | payer MEDICARE, BC, OTHER ==
[~2022-11-17] MED LIST changes: -CELE1CAP7 PO; +CELE1CAP8 PO; +PRED5PAK PO
[2022-11-17 15:25] LABS: BASO # 0.1 10^3/uL (0.0-0.2); BASO % 0.8 % (0.0-1.0); EOS # 0.3 10^3/uL (0.0-0.5); EOS % 4.4 % (0.0-3.0); HEMOGLOBIN 14.2 g/dl (13.5-17.5); LYMPH # 2.4 10^3/uL (1.5-5.0); LYMPH % 32.5 % (24.0-44.0); MEAN CORPUSCULAR HEMOGLOBIN 29.5 pg (27.0-33.0); MEAN CORPUSCULAR VOLUME 89.2 fl (80.0-96.0); MONO # 0.7 10^3/uL (0.0-0.8); MONO % 10.2 % (2.0-8.0); NEUTROPHILS # 3.8 10^3/uL (1.5-8.5); NEUTROPHILS % 51.4 % (36.0-66.0); PLATELET COUNT, AUTOMATED 279 10^3/uL (150-450); RED BLOOD COUNT 4.82 10^6/uL (4.30-6.10); WHITE BLOOD COUNT 7.3 10^3/uL (4.0-10.0)
[2022-11-17 15:52] LABS: ALBUMIN 3.7 G/DL (3.2-5.2); ALKALINE PHOSPHATASE 116 U/L (46-116); ALT/SGPT 15 U/L (7.0-40); AST/SGOT 15 U/L (<34); BILIRUBIN,TOTAL 0.9 MG/DL (0.3-1.2); BLOOD UREA NITROGEN 12 MG/DL (9-23); CALCIUM LEVEL 9.4 MG/DL (8.3-10.6); CARBON DIOXIDE LEVEL 26 MMOL/L (20-31); CHLORIDE LEVEL 107 MMOL/L (98-107); CREATININE FOR GFR 0.81 MG/DL (0.70-1.30); GLOMERULAR FILTRATION RATE > 60.0 (>49); GLUCOSE, FASTING 65 MG/DL (74-106); IRON (FE) 70 UG/DL (65-175); PERCENT SATURATION 21.7 % (19.7-50.0); POTASSIUM SERUM 3.8 MMOL/L (3.5-5.1); SODIUM LEVEL 144 MMOL/L (136-145); TOTAL IRON BINDING CAPACITY 322 UG/DL (250-425); TOTAL PROTEIN 6.9 G/DL (5.7-8.2)
[2022-11-17 15:57] LABS: FERRITIN 11.1 NG/ML (10.5-307.3); FREE T4 0.95 NG/DL (0.89-1.76)
[2022-11-17 15:58] LABS: THYROID PEROXIDASE ANTIBODY < 28.0 U/ML (<60.0); THYROID STIMULATING HORMONE 4.928 uIU/ML (0.55-4.78)
[2022-11-17 15:59] LABS: FREE T3 3.4 PG/ML (2.3-4.2)
[2022-11-23 13:08] LABS: Methylmalonic Acid 201 nmol/L (0-378)
== END ==
LOC: M PLALAB 14:05
PROVIDERS: ATTEND Nurse Practitioner Family
DX: R53.83 Other fatigue (principal); R06.02 Shortness of breath; Z79.899 Other long term (current) drug therapy

== ENCOUNTER → 2022-12-20 | Outpatient (REF) | payer MEDICARE, BC, OTHER ==
[~2022-12-20] MED LIST changes: -CELE1CAP8 PO; +CELE1CAP99 PO
[2022-12-20 16:56] LABS: BASO # 0.1 10^3/uL (0.0-0.2); EOS # 0.3 10^3/uL (0.0-0.5); EOS % 5.4 % (0.0-3.0); HEMATOCRIT 47.3 % (42.0-52.0); HEMOGLOBIN 14.9 g/dl (13.5-17.5); LYMPH # 1.5 10^3/uL (1.5-5.0); LYMPH % 30.8 % (24.0-44.0); MEAN CORPUSCULAR HEMOGLOBIN 28.3 pg (27.0-33.0); MEAN CORPUSCULAR HGB CONC 31.5 g/dl (32.0-36.5); MEAN CORPUSCULAR VOLUME 89.9 fl (80.0-96.0); MONO # 0.5 10^3/uL (0.0-0.8); MONO % 9.4 % (2.0-8.0); NEUTROPHILS # 2.5 10^3/uL (1.5-8.5); PLATELET COUNT, AUTOMATED 287 10^3/uL (150-450); RED BLOOD COUNT 5.26 10^6/uL (4.30-6.10); WHITE BLOOD COUNT 4.8 10^3/uL (4.0-10.0)
[2022-12-20 17:18] LABS: ALBUMIN 3.6 G/DL (3.2-5.2); ALKALINE PHOSPHATASE 119 U/L (46-116); ALT/SGPT 18 U/L (7.0-40); AST/SGOT 18 U/L (<34); BILIRUBIN,TOTAL 0.7 MG/DL (0.3-1.2); BLOOD UREA NITROGEN 9 MG/DL (9-23); CALCIUM LEVEL 8.8 MG/DL (8.3-10.6); CARBON DIOXIDE LEVEL 28 MMOL/L (20-31); CHLORIDE LEVEL 107 MMOL/L (98-107); GLOMERULAR FILTRATION RATE > 60.0 (>49); GLUCOSE, FASTING 119 MG/DL (74-106); SODIUM LEVEL 143 MMOL/L (136-145)
[2022-12-20 17:43] LABS: ERYTHROCYTE SEDIMENTATION RATE 36 mm/hr (0-20)
== END ==
LOC: M SFHCRHEU 12:54
PROVIDERS: ATTEND Internal Medicine Rheumatology
DX: M35.3 Polymyalgia rheumatica (principal); H04.123 Dry eye syndrome of bilateral lacrimal glands; R79.82 Elevated C-reactive protein (CRP)

== ENCOUNTER → 2023-04-27 | Outpatient (CLI) | payer MEDICARE, BC, OTHER | LOC: M SOG 07:51 | PROVIDERS: ATTEND Orthopaedic Surgery | DX: M16.12 Unilateral primary osteoarthritis, left hip (principal); M25.552 Pain in left hip ==

== ENCOUNTER → 2023-06-04 | Outpatient (CLI) | payer MEDICARE, BC | LOC: M SOG 07:53 | PROVIDERS: ATTEND Orthopaedic Surgery | DX: M51.36 Other intervertebral disc degeneration, lumbar region (principal) ==

== ENCOUNTER → 2023-07-05 | Outpatient (CLI) | payer MEDICARE, BC | LOC: M PLARAD 10:01 | PROVIDERS: ATTEND Orthopaedic Surgery | DX: M16.12 Unilateral primary osteoarthritis, left hip (principal); M87.852 Other osteonecrosis, left femur ==

== ENCOUNTER → 2023-07-25 | Outpatient (CLI) | payer MEDICARE, BC | LOC: M PLALAB 09:31 | PROVIDERS: ATTEND Nurse Practitioner Family | DX: Z01.818 Encounter for other preprocedural examination (principal); I10 Essential (primary) hypertension ==

== ENCOUNTER → 2023-07-31 | Outpatient (CLI) | payer MEDICARE, BC ==
[~2023-07-31] MED LIST changes: +ATOR1TAB21 PO; +LEXA1TAB2 PO; +LOSA100T5 PO; +MULTTAB61 PO; +OMEG10002 PO
== END ==
LOC: M RAD 12:52
PROVIDERS: ATTEND Orthopaedic Surgery
DX: M87.052 Idiopathic aseptic necrosis of left femur (principal); Z96.641 Presence of right artificial hip joint

== ENCOUNTER 2023-08-20 06:08 | Observation (INO) | payer MEDICARE, BC ==
[~2023-08-20] VITALS: Ht 175.3 cm; Wt 120.4 kg
[2023-08-20] VITALS (7 sets, daily range): BP systolic 110–122; BP diastolic 52–67; TEMP 97.3–98.1; O2SAT 92–95
[~2023-08-20 06:08] MED LIST changes: +UNRESOLVED CLARIFICATION ENTRY XX SCH
[2023-08-20] MEDS ORDERED: LR 1,000 ML IV SCH (06:15)
[2023-08-20] MEDS ORDERED: HOME MED LIST COMPLETE! XX SCH (06:40)
[2023-08-20] MEDS ORDERED: LIDOCAINE 2% 100MG/5ML SDV (FOR ANES.) As Ordered ONE (07:07)
[2023-08-20] MEDS: TRANEXAMIC ACID 100 MG/ML 10ML VIAL As Ordered ONE (07:19)
[2023-08-20] MEDS ORDERED: MIDAZOLAM INJ 2MG/2ML VIAL As Ordered ONE (07:26)
[2023-08-20] MEDS ORDERED: fentaNYL 100 MCG/2 ML INJECTION As Ordered ONE (07:27)
[2023-08-20] MEDS: ceFAZolin SOD 1 GM in D5W MINI-BAG PLUS 50 ML IV ONE (08:00)
[2023-08-20] MEDS: TRANEXAMIC ACID 100 MG/ML 10ML VIAL IV ONE (08:00)
[2023-08-20] MEDS: ceFAZolin SOD 2 GM in IV 1 EA IV ONE (08:00)
[2023-08-20] MEDS ORDERED: propofoL 200 MG/20 ML VIAL As Ordered ONE (08:01)
[2023-08-20] MEDS ORDERED: ROCURONIUM BROMIDE 50MG/5ML VIAL As Ordered ONE (08:04)
[2023-08-20] MEDS ORDERED: GLYCOPYRROLATE INJ 0.2 MG/ML 2 ML VIAL As Ordered ONE (08:30)
[2023-08-20] MEDS ORDERED: PHENYLephrine 500MCG 5ML (100MCG/ML) SYRINGE As Ordered ONE (08:34)
[2023-08-20] MEDS ORDERED: ePHEDrine SULFATE 25 MG/5 ML(5MG/ML) SYRINGE As Ordered ONE (08:34)
[2023-08-20] MEDS ORDERED: ACETAMINOPHEN 1000MG 100ML IV BAG As Ordered ONE (08:48)
[2023-08-20] MEDS ORDERED: SUGAMMADEX SODIUM 500 MG/5 ML VIAL (BRIDION) As Ordered ONE (08:48)
[2023-08-20] MEDS ORDERED: ONDANSETRON 4MG 2ML VIAL As Ordered ONE (08:50)
[2023-08-20] MEDS: ROPIVA 100MG/KETOR 15MG/EPINEPHRINE 0.3MG IN NS 50ML SYRINGE PA ONE (08:50)
[2023-08-20] MEDS: VANCOMYCIN 1000MG/20ML VIAL As Ordered ONE (10:02)
[2023-08-20] MEDS ORDERED: dexmedeTOMIDine (4MCG/ML)200MCG/50ML BTL (PRECEDEX) As Ordered ONE (10:06)
[2023-08-20] MEDS ORDERED: HYDROmorphone HCL 2MG/ML 1ML VIAL As Ordered ONE (10:24)
[2023-08-20] MEDS ORDERED: NAPROXEN 250 MG TAB PO SCH (10:30)
[2023-08-20] MEDS ORDERED: ONDANSETRON 4MG 2ML VIAL IV PRN ×2 (10:30→10:40)
[2023-08-20] MEDS ORDERED: oxyCODONE 5MG TAB PO PRN ×3 (10:30→10:40)
[2023-08-20] MEDS ORDERED: SENNA 8.6 MG TAB (SENOKOT) PO PRN (10:30)
[2023-08-20] MEDS ORDERED: fentaNYL 100 MCG/2 ML INJECTION IV PRN (10:40)
[2023-08-20] MEDS: LR 1,000 ML IV SCH (12:26)
[2023-08-20] MEDS: ACETAMINOPHEN TAB 650MG DOSE (2X325MG) PO SCH (12:28)
[2023-08-20] MEDS: ceFAZolin SOD 2 GM in IV 1 EA IV SCH (16:17)
[2023-08-20] MEDS: ASPIRIN 81MG ENTERIC TABLET PO SCH (20:11)
[2023-08-20] MEDS: DOCUSATE SODIUM 100MG CAPSULE PO SCH (20:11)
[2023-08-21] VITALS: BP 123/56; TEMP 97.9; O2SAT 93
[2023-08-21 04:06] VITALS: BP 120/55; TEMP 97.9; O2SAT 93
[2023-08-21 06:56] LABS: HEMATOCRIT 35.1 % (42.0-52.0); HEMOGLOBIN 11.5 g/dl (13.5-17.5); MEAN CORPUSCULAR HEMOGLOBIN 29.3 pg (27.0-33.0); MEAN CORPUSCULAR HGB CONC 32.8 g/dl (32.0-36.5); MEAN CORPUSCULAR VOLUME 89.5 fl (80.0-96.0); PLATELET COUNT, AUTOMATED 225 10^3/uL (150-450); RED BLOOD COUNT 3.92 10^6/uL (4.30-6.10); WHITE BLOOD COUNT 10.3 10^3/uL (4.0-10.0)
[2023-08-21 07:34] LABS: ALBUMIN 2.8 G/DL (3.2-5.2); ALKALINE PHOSPHATASE 90 U/L (46-116); ALT/SGPT 20 U/L (7.0-40); AST/SGOT 42 U/L (<34); BILIRUBIN,TOTAL 0.7 MG/DL (0.3-1.2); BLOOD UREA NITROGEN 17 MG/DL (9-23); CALCIUM LEVEL 8.4 MG/DL (8.3-10.6); CARBON DIOXIDE LEVEL 26 MMOL/L (20-31); CHLORIDE LEVEL 107 MMOL/L (98-107); CREATININE FOR GFR 0.84 MG/DL (0.70-1.30); GLOMERULAR FILTRATION RATE > 60.0 (>49); GLUCOSE, FASTING 115 MG/DL (74-106); POTASSIUM SERUM 3.9 MMOL/L (3.5-5.1); SODIUM LEVEL 139 MMOL/L (136-145); TOTAL PROTEIN 5.5 G/DL (5.7-8.2)
[2023-08-21] MEDS: FERROUS SULFATE 325MG TAB PO SCH (08:01)
[2023-08-21 08:02] VITALS: BP 120/55
[2023-08-21] MEDS: ASCORBIC ACID 500 MG TAB PO SCH (08:02)
[2023-08-21] MEDS: CelecoXIB (CeleBREX) 100 MG CAP PO SCH (08:02)
[2023-08-21] MEDS: LOSARTAN 50MG TABLET PO SCH (08:02)
[2023-08-21] MEDS: ESCITALOPRAM OXALATE 10 MG TAB (LEXAPRO) PO SCH (08:02)
[2023-08-21] MEDS: ATORVASTATIN 20 MG TAB PO SCH (08:03)
[2023-08-21 08:06] VITALS: BP 119/59; TEMP 97.7; O2SAT 93
[2023-08-21] MEDS ORDERED: CEFA500C2 PO (08:35)
[2023-08-21] MEDS ORDERED: ASPI81TAEC PO (08:35)
[2023-08-21] MEDS ORDERED: OXYC1TAB23 PO (08:35)
== END 2023-08-21 10:35 | disposition home or self-care (01) ==
LOC: M SDC 06:08 → M RR INP 06:09 → M MS5PR 12:05
PROVIDERS: ADMIT Orthopaedic Surgery; ATTEND Orthopaedic Surgery
DX: M16.12 Unilateral primary osteoarthritis, left hip (principal); M87.052 Idiopathic aseptic necrosis of left femur; G47.30 Sleep apnea, unspecified; Z79.899 Other long term (current) drug therapy
CPT/HCPCS: 27130; 36415; 72170; 80053; 85027; 88304; 88311; 96374; 96376; 97116; 97161; 97165; 97530; 97535; C1776; G0378; J0131; J0690; J1100; J1170; J2250; J2371; J2405; J3010; J3370

== ENCOUNTER → 2023-09-03 | Outpatient (CLI) | payer MEDICARE, BC ==
[~2023-09-03] MED LIST changes: +ASPI81TAEC PO; +CEFA500C2 PO; +OXYC1TAB23 PO; -UNRESOLVED CLARIFICATION ENTRY XX SCH
== END ==
LOC: M SOG 07:56
PROVIDERS: ATTEND Orthopaedic Surgery
DX: Z47.1 Aftercare following joint replacement surgery (principal); Z96.642 Presence of left artificial hip joint

== ENCOUNTER 2023-09-07 09:35 | Outpatient (RCR) | payer MEDICARE, BC | END 2023-09-09 | LOC: M PT 09:35 | PROVIDERS: ATTEND Orthopaedic Surgery | DX: Z96.642 Presence of left artificial hip joint (principal); Z47.1 Aftercare following joint replacement surgery ==

== ENCOUNTER 2023-10-09 09:30 | Outpatient (RCR) | payer MEDICARE, BC | END 2023-10-10 | LOC: M PT 09:30 | PROVIDERS: ATTEND Orthopaedic Surgery | DX: Z96.642 Presence of left artificial hip joint (principal) ==

== ENCOUNTER 2023-10-30 09:50 | Outpatient (RCR) | payer MEDICARE, BC | END 2023-11-10 | LOC: M PT 09:50 | PROVIDERS: ATTEND Orthopaedic Surgery | DX: Z96.642 Presence of left artificial hip joint (principal) ==

== ENCOUNTER → 2024-01-02 | Outpatient (CLI) | payer MEDICARE, BC | LOC: M SOG 07:25 | PROVIDERS: ATTEND Orthopaedic Surgery | DX: Z96.642 Presence of left artificial hip joint (principal); M25.552 Pain in left hip ==

== ENCOUNTER → 2024-03-28 | Outpatient (CLI) | payer MEDICARE, BC ==
[~2024-03-28] MED LIST changes: -TADA5TAB PO; +TADA5TAB94 PO
== END ==
LOC: M RAD 09:39
PROVIDERS: ATTEND Nurse Practitioner Family
DX: M79.662 Pain in left lower leg (principal); I82.412 Acute embolism and thrombosis of left femoral vein; I82.432 Acute embolism and thrombosis of left popliteal vein

== ENCOUNTER 2024-04-08 09:40 | Emergency (ER) | payer BC, MEDICARE ==
[~2024-04-08] VITALS: Ht 175.3 cm; Wt 122.6 kg
[2024-04-08 12:40] VITALS: BP 140/82; TEMP 98.5; O2SAT 96
== END 2024-04-08 12:44 | disposition home or self-care (01) ==
LOC: M ED 09:40
DX: I82.512 Chronic embolism and thrombosis of left femoral vein (principal); I82.532 Chronic embolism and thrombosis of left popliteal vein; Z79.01 Long term (current) use of anticoagulants; Z98.84 Bariatric surgery status

== ENCOUNTER → 2024-09-16 | Outpatient (CLI) | payer MEDICARE, BC ==
[~2024-09-16] MED LIST changes: +TADA5TAB2 PO; -TADA5TAB94 PO
== END ==
LOC: M PLALAB 14:01
PROVIDERS: ATTEND Physician Assistant
DX: C61 Malignant neoplasm of prostate (principal)

== ENCOUNTER → 2024-10-01 | Outpatient (CLI) | payer MEDICARE, BC | LOC: M RAD 07:23 | PROVIDERS: ATTEND Internal Medicine | DX: Z86.718 Personal history of other venous thrombosis and embolism (principal); Z79.899 Other long term (current) drug therapy ==

== ENCOUNTER → 2024-10-27 | Outpatient (CLI) | payer MEDICARE, BC | LOC: M SLEEP 20:00 | PROVIDERS: ATTEND Physician Assistant | DX: G47.33 Obstructive sleep apnea (adult) (pediatric) (principal) ==

== ENCOUNTER → 2025-02-23 | Outpatient (CLI) | payer MEDICARE, BC | LOC: M SOG 07:37 | PROVIDERS: ATTEND Orthopaedic Surgery | DX: M25.552 Pain in left hip (principal) ==